=== PATIENT | female | born 1990 | race Caucasian/White ===

== ENCOUNTER 2017-09-28 19:33 | Emergency (ER) | payer SELFPAY ==
[~2017-09-28] VITALS: Ht 165.1 cm; Wt 82.0 kg
[2017-09-28 19:45] VITALS: BP 136/63; PULSE 67; RESP 20; TEMP 98.2; O2SAT 100
[2017-09-28] MEDS ORDERED: TETANUS/DIPHTHERIA TOXOID ADULT 0.5 ML VIAL IM ONE (20:15)
[2017-09-28] MEDS ORDERED: KETOROLAC TROMETHAMINE 60 MG/2 ML (IM) VIAL IM ONE (20:15)
--- NOTE | 2017-09-28 20:20 | PD ---
HPI Chief Complaint: Right knee pain Time Seen by Provider: 19:56 Travel History International Travel<30 days: No Contact w/Intl Traveler<30days: No Traveled to known affect area: No History of Present Illness HPI 26yo F with no significant PMH presents to the ED with c/o right knee pain. Said she was at work on the phone and was turning and taking a step at the same time with right knee. Said her right knee cap came out and went lateral and she fell on her right side. Denies any head trauma or LOC. Denies any dizziness, chest pain, sob, n/v, abdominal pain, focal weakness. Said her knee cap went back in place on its own. Pt has abrasion on right knee but no other complaints. Has some tingling in her toes but has normal sensation. PFSH Past Medical History ?: Not LMP: 09/23/17 Social History Tobacco Use: No Allergies-Medications (Allergen,Severity, Reaction): Coded Allergies: No Known Drug Allergies (Verified Allergy, Unknown, 09/28/17) Reported Meds & Prescriptions Reported Meds & Active Scripts Active Ibuprofen 600 Mg Tab 600 Mg PO Q8H PRN Review of Systems Except as stated in HPI: all other systems reviewed are Neg Physical Exam Narrative GENERAL: 26yo F not in distress. SKIN: Focused skin assessment warm/dry. HEAD: Atraumatic. Normocephalic. EYES: Pupils equal and round. EOMI. ENT: No nasal bleeding or discharge. Mucous membranes pink and moist. NECK: Trachea midline. No JVD. CARDIOVASCULAR: Regular rate and rhythm. No murmur appreciated. RESPIRATORY: No accessory muscle use. Clear to auscultation. Breath sounds equal bilaterally. GASTROINTESTINAL: Abdomen soft, non-tender, nondistended. No rebound tenderness or guarding. MUSCULOSKELETAL: Right knee: +Abrasion. Patella in place. +Edema right knee with ttp medial patella and inferior to patella. Sensation intact. DP 2+. FROM right ankle. No ttp right hip. NEUROLOGICAL: Awake and alert. No obvious cranial nerve deficits. Motor grossly within normal limits. Normal speech. PSYCHIATRIC: Appropriate mood and affect; insight and judgment normal. Data Data Last Documented VS Vital Signs Date Time Temp Pulse Resp B/P (MAP) Pulse Ox O2 Delivery O2 Flow Rate FiO2 09/28/17 23:28 09/28/17 22:17 63 18 100 Room Air 09/28/17 19:45 98.2 Orders Orders Knee, Ltd (1 Or 2vws) (09/28/17 ) Tetanus/Diphtheria Tox Adult (Tetanus/Di (09/28/17 20:15) Ketorolac Inj (Toradol Inj) (09/28/17 20:15) Ed Urine Pregnancytest Poc (09/28/17 20:13) ^ Knee Immobilizer (09/28/17 22:59) Crutches (09/28/17 22:59) Ed Discharge Order (09/28/17 23:09) Immobilizer Knee 20 Inch (09/28/17 ) MDM Medical Decision Making Medical Screen Exam Complete: Yes Emergency Medical Condition: Yes Differential Diagnosis Patella dislocation/relocation vs. patella tendon rupture vs. fracture Narrative Course 26yo F with no significant PMH was taking a step with her right knee and was twisting her body while on the phone at the same time and said her knee gave out and the patella came out and she fell. She said it spontaneously went back in. Neurovascular intact. Will update on tetanus since there is an abrasion on her knee. Will do xray and give pain medication. Xray of right knee showed no evidence of dislocation or fracture. Pt given toradol and pain has resolved. Pt's right knee is placed in knee immobilizer and given crutches. Pt is still neurovascularly intact. Pt instructed to follow up with orthopedic as outpatient. Return precautions given. Diagnosis Primary Impression: Patellar dislocation Qualified Codes: S83.004A - Unspecified dislocation of right patella, initial encounter Referrals: Dustin Knox MD call for appointment s/p patellar dislocation Patient Instructions: General Instructions Departure Forms: Tests/Procedures, Work Release Enter return to work date: Sep 30, 2017 Additional Instructions: Please keep knee immobilizer on right knee and follow up with orthopedic clinic in 1-2 days. Return to the ED if symptoms worsen. Med/Other Pt SpecificInfo: Prescription(s) given Scripts Ibuprofen (Ibuprofen) 600 Mg Tab 600 MG PO Q8H Y for PAIN, #20 TAB 0 Refills Prov: Naon Maria 09/28/17 Disposition: 01 DISCHARGE HOME Condition: Stable Cherry Marianehemias EDOUARD Sep 28, 2017 20:20
--- NOTE | 2017-09-28 20:42 | RADRPT ---
EXAM DATE/TIME: 09/28/2017 20:33 [facility] COMPARISON: No previous studies available for comparison. INDICATIONS : Right knee pain, fall. MEDICAL HISTORY : None. SURGICAL HISTORY : None. ENCOUNTER: Initial ACUITY: 1 day PAIN SCORE: 6/10 LOCATION: Right lateral pain FINDINGS: Two view examination of the right knee demonstrates no evidence of fracture or dislocation. Bony min eralization is normal. The suprapatellar soft tissues have a normal configuration. CONCLUSION: No evidence of recent bony injury. Jerson Conner MD on September 28, 2017 at 20:40 Board Certified Radiologist. This report was verified electronically.
[2017-09-28 22:17] VITALS: BP 118/75; PULSE 63; RESP 18; O2SAT 100
[2017-09-28] MEDS ORDERED: IBUP-232 PO (23:08)
== END 2017-09-28 23:28 | disposition home or self-care (01) ==
LOC: NEPE 19:33
DX: S83.004A Unspecified dislocation of right patella, initial encounter (principal); W18.30XA Fall on same level, unspecified, initial encounter; Y92.89 Other specified places as the place of occurrence of the external cause; Y99.0 Civilian activity done for income or pay
CPT/HCPCS: 73560; 84703; 90471; 90714; 99284; E0113; J1885; L1830